=== PATIENT | female | born 1965 | race Caucasian/White ===

== ENCOUNTER 2022-07-29 17:20 | Emergency (ER) | payer OTHER ==
[~2022-07-29] VITALS: Ht 180.3 cm; Wt 67.3 kg
[2022-07-29 17:55] VITALS: BP 128/78; TEMP 96.2
[2022-07-29 18:44] VITALS: PULSE 54
== END 2022-07-29 18:44 | disposition home or self-care (01) ==
LOC: COL.ER 17:20
DX: S01.511A Laceration without foreign body of lip, initial encounter (principal); Z23 Encounter for immunization; W29.8XXA Contact with other powered hand tools and household machinery, initial encounter